=== PATIENT | male | born 1940 | race Caucasian/White ===

== ENCOUNTER → 2018-06-07 | Outpatient (CLI) | payer OTHER | LOC: BMCIMAGING 16:24 | PROVIDERS: ATTEND Internal Medicine | DX: R22.42 Localized swelling, mass and lump, left lower limb (principal); C95.90 Leukemia, unspecified not having achieved remission ==

== ENCOUNTER → 2018-06-22 | Outpatient (CLI) | payer OTHER ==
[~2018-06-22] MED LIST: GADOBUTROL 10 ML VIAL IVP ONE
== END ==
LOC: FIMAGING 09:49
PROVIDERS: ATTEND Internal Medicine
DX: M79.9 Soft tissue disorder, unspecified (principal); Z85.6 Personal history of leukemia
CPT/HCPCS: 73720; A9585

== ENCOUNTER 2018-06-28 14:47 | Day surgery (SDC) | payer OTHER ==
--- NOTE | 2018-06-27 16:14 | GHP ---
DATE OF ADMISSION: 06/28/2018 PREOPERATIVE DIAGNOSIS: Left thigh mass. HISTORY OF PRESENT ILLNESS: The patient is a 77-year-old man with chronic lymphocytic leukemia. He has been followed by his oncologist, Dr. Chin Donovan. He noticed some swelling in the anterior aspect of his left thigh. He denies any pain or redness in the area. He had an ultrasound performed, which showed asymmetry in the rectus femoris muscle. No evidence of hyperemia or discrete mass. He had a followup MRI on 06/23/2018. PAST MEDICAL HISTORY: CLL, hypertension, hyperlipidemia, coronary artery disease. ALLERGIES: No known drug allergies. FAMILY HISTORY: None. SOCIAL HISTORY: He is retired. He is , with 3 children. He denies tobacco, alcohol, or recreational drug use. REVIEW OF SYSTEMS: 10-point review of systems negative aside from HPI. PHYSICAL EXAMINATION: GENERAL: A pleasant, well-developed, well-nourished man in no acute distress. HEENT: Normocephalic, atraumatic. No hearing deficits. Pupils equal and round. No scleral icterus. Mucous membranes moist. NECK: Trachea midline. RESPIRATORY: No increased work of breathing. Clear to auscultation bilaterally. CARDIOVASCULAR: Regular rate and rhythm. No peripheral edema. MUSCULOSKELETAL: Asymmetry of the left thigh with swelling and overlying skin changes. No tenderness to palpation. No swelling of the right lower extremity. PSYCH: Mood and affect normal. NEURO: Grossly intact. IMPRESSION/PLAN: 77-year-old man with chronic lymphocytic leukemia and a new left thigh mass. Recommend excisional biopsy to obtain a definitive diagnosis. Discussed risks of surgery, including, but not limited to heart attack, stroke , blood clots, or . Discussed risk of infection, bleeding, damage to surrounding structures, scarring, need for additional procedures. He understands the risks and would like to proceed. Patient was additionally seen by Dr. Brianna Mason who agrees with the above impression and plan. /[id number]/MODL MTDD
[2018-06-28] MEDS ORDERED: ceFAZolin 2 GM/DEXTROSE 100 ML IV ONE (14:53)
[2018-06-28] MEDS ORDERED: LIDOCAINE 1% 2 ML INJ ID PRN (14:54)
[2018-06-28] MEDS ORDERED: LR 1,000 ML IV ONE (14:54)
--- NOTE | 2018-06-28 14:57 | PDHPUP ---
History & Physical Update H&P update statement: This history and physical update is based on an assessment of the patient which was completed after admission or registration (within 24 hours), but prior to the surgery/procedure. H&P update: H&P reviewed & patient examined, no change in patient's condition since H&P completed
[2018-06-28] MEDS ORDERED: BUPIVACAINE 0.5% 30 ML SDV ONE (15:04)
[2018-06-28] MEDS ORDERED: PROPOFOL/EMULSION 500 MG/50 ML BOTTLE IV ONE (15:36)
[2018-06-28] MEDS ORDERED: fentaNYL 100 MCG/2 ML INJ ONE (15:37)
[2018-06-28] MEDS ORDERED: PROMETHAZINE HCL 25 MG/ML INJ IVP PRN (16:10)
[2018-06-28] MEDS ORDERED: ALBUTEROL 3 ML DEYVIAL IH PRN (16:10)
[2018-06-28] MEDS ORDERED: HYDROCODONE/APAP 5/325 TAB PO PRN (16:10)
[2018-06-28] MEDS ORDERED: fentaNYL 100 MCG/2 ML INJ IVP PRN (16:10)
[2018-06-28] MEDS ORDERED: oxyCODONE IR 5 MG TAB PO PRN (16:10)
[2018-06-28] MEDS ORDERED: NALOXONE HCL 0.4 MG/ML INJ IVP PRN (16:10)
[2018-06-28] MEDS ORDERED: DEXAMETHASONE 4 MG/ML VIAL IVP PRN (16:10)
[2018-06-28] MEDS ORDERED: ACETAMINOPHEN 500 MG TAB PO PRN (16:10)
--- NOTE | 2018-06-28 16:10 | PDANEPAE ---
ANE History of Present Illness here for thigh mass excision ANE Past Medical History - Cardiovascular History Hx Hypertension: Yes Hx Arrhythmias: No Hx Chest Pain: No Hx Coronary Artery / Peripheral Vascular Disease: No Hx CHF / Valvular Disease: No Hx Palpitations: No Cardiovascular History Comment: HYPERLIPIDEMIA. PCP MONITORS BP MEDICATIONS CURRENTLY - Pulmonary History Hx COPD: No Hx Asthma/Reactive Airway Disease: No Hx Recent Upper Respiratory Infection: No Hx Oxygen in Use at Home: No Hx Sleep Apnea: No Sleep Apnea Screening Result - Last Documented: Positive Pulmonary History Comment: LEXIS TRIGGERS - Neurologic History Hx Cerebrovascular Accident: No Hx Seizures: No Hx Dementia: No Neurologic History Comment: HX OF BACK SURGERY. PERIPHERAL NEUROPATHY - Endocrine History Hx Diabetes: No - Renal History Hx Renal Disorders: Yes Renal History Comment: ENLARGED PROSTATE - Liver History Hx Hepatic Disorders: No - Neurological & Psychiatric Hx Hx Neurological and Psychiatric Disorders: No - Cancer History Hx Cancer: Yes Cancer History Comment: LYMPHOCYTIC LEUKEMIA DX'D 03/04/18 - Congenital Disorder History Hx Congenital Disorders: No - GI History Hx Gastrointestinal Disorders: Yes Gastrointestinal History Comment: HX OF COLON RESECTION - Other Health History Other Health History: NONE - Chronic Pain History Chronic Pain: No - Surgical History Prior Surgeries: LAMI AND SPINAL FUSION. COLON RESECTION. RTC REPAIR- RIGHT. HERNIA REPAIR. TONSILLECTOMY ANE Review of Systems Review of systems is: negative Review of Systems: - Exercise capacity Exercise capacity: >=4 METS METS (RN): 4 METS ANE Patient History - Allergies Allergies/Adverse Reactions: No Known Allergies Allergy (Verified 06/27/18 17:36) - Home Medications Home medications: home medication list seen and reviewed Home Medications: Ambien 06/27/18 [Last Taken Unknown] Avodart 0.5 MG (*) 06/27/18 [Last Taken 06/27/18 19:30] Diovan 06/27/18 [Last Taken 06/27/18 19:30] Escitalopram Oxalate 06/27/18 [Last Taken 06/27/18 19:30] Excedrin Tablet (*) 06/27/18 [Last Taken 06/27/18] Flomax 06/27/18 [Last Taken 06/27/18 19:30] Gabapentin 06/27/18 [Last Taken 06/27/18 19:30] Herbals/Supplements -Info Only 06/27/18 [Last Taken 06/27/18] Lipitor 06/27/18 [Last Taken 06/27/18 19:30] Ambien 06/28/18 [Last Taken 06/27/18 19:30] - NPO status NPO Status: no food or drink >8 hours NPO Since - Liquids (Date): 06/28/18 NPO Since - Liquids (Time): 15:00 NPO Since - Solids (Date): 06/28/18 NPO Since - Solids (Time): 07:30 - Smoking Hx Smoking Status: Former smoker - Family Anes Hx Family Hx Anesthesia Complications: NONE ANE Labs/Vital Signs - Vital Signs Vital Signs: reviewed preoperatively; see RN documention for details Blood Pressure: 131/70 Heart Rate: 60 Respiratory Rate: 12 O2 Sat (%): 94 Height: 172.72 cm Weight: 77.111 kg ANE Physical Exam - Airway Neck exam: FROM Mallampati Score: Class 1 - Pulmonary Pulmonary: no respiratory distress - Cardiovascular Cardiovascular: regular rate and rhythym - ASA Status ASA Status: II ANE Anesthesia Plan Anesthesia Plan: GA with mask
--- NOTE | 2018-06-28 16:19 | POSTOPPROG ---
Post Op Note Date of Operation: 06/28/18 Surgeon: Brianna Mason Anesthesiologist: sherrie Anesthesia: IV Sedation Pre-op Diagnosis: L thigh mass Post-op Diagnosis: l thigh mass Indication: 77 yo with CLL and Left thigh mass Procedure: Excisional biopsy deep L thigh mass Findings: fatty tissue Inf/Abcess present in the surg proc area at time of surgery?: No Specimen(s): L thigh mass
[2018-06-28] MEDS ORDERED: ACETAMINOPHEN/ASA/CAFFEINE 1 EACH TAB PO ONE (17:15)
--- NOTE | 2018-06-28 17:20 | POSTANESTH ---
Post Anesthetic Evaluation Cardiovascular Status: Normal, Stable Respiratory Status: Normal, Stable Level of Consciousness/Mental Status: Can Participate in Eval Pain Control: Adequate, Prn Tx Ordered Nausea/Vomiting Control: Adequate, Prn Tx Ordered Complications Possibly Related to Anesthesia: None Noted
[2018-06-28 17:27] VITALS: BP 119/55
--- NOTE | 2018-06-28 22:04 | GOP ---
DATE OF OPERATION: 06/28/2018 SURGEON: Brianna Mason MD ANESTHESIA: Monitored anesthesia care with IV sedation. ANESTHESIOLOGIST: Kp Perry MD. PREOPERATIVE DIAGNOSIS: Left thigh mass. POSTOPERATIVE DIAGNOSIS: Left thigh mass. PROCEDURE PERFORMED: Deep excisional biopsy of left thigh mass, approximately 5 x 3 cm. FINDINGS: fatty tissue SPECIMENS: Left thigh mass. ESTIMATED BLOOD LOSS: 5 cc. INDICATIONS: This is a patient with CLL who had a left thigh mass. 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 DESCRIPTION OF PROCEDURE: Patient was brought into the operating room and placed supine on the table. Monitored anesthesia care with IV sedation was performed. His left thigh was prepped and draped in the usual sterile fashion. I infiltrated the area with 0.5% Marcaine prior to making incisions. I made an incision down through the subcutaneous tissue. I encountered the fascia just medial of the vastus lateralis. I divided this and immediately a large lipomatous structure was in the field. I transected a large piece of this and submitted it to Pathology for permanent. Hemostasis was achieved. I closed the fascia with 3-0 Vicryl. I placed hemoclips to identify the area where I entered the fascia. The skin was closed with 3-0 Vicryl followed by 4-0 Monocryl. Dermabond applied. He was awakened in the operating room and transferred to PACU in stable condition. /[id number]/MODL MTDD
== END 2018-06-28 18:18 | disposition home or self-care (01) ==
LOC: FSGY 14:47
PROVIDERS: ATTEND Surgery
PROC: 0JBM0ZX Excision of Left Upper Leg Subcutaneous Tissue and Fascia, Open Approach, Diagnostic (ICD-10-PCS; principal; 2018-06-28 16:15)
DX: R22.42 Localized swelling, mass and lump, left lower limb (principal); C91.10 Chronic lymphocytic leukemia of B-cell type not having achieved remission; I10 Essential (primary) hypertension; E78.5 Hyperlipidemia, unspecified; I25.10 Atherosclerotic heart disease of native coronary artery without angina pectoris; G62.9 Polyneuropathy, unspecified; Z87.891 Personal history of nicotine dependence
CPT/HCPCS: J0690; J2704; J3010

== ENCOUNTER → 2018-12-13 | Outpatient (CLI) | payer OTHER ==
[~2018-12-13] MED LIST changes: -GADOBUTROL 10 ML VIAL IVP ONE; +IOPAMIDOL (ISOVUE-300) 100 ML BTL ONE
== END ==
LOC: FIMAGING 13:08
PROVIDERS: ATTEND Orthopaedic Surgery
DX: C49.22 Malignant neoplasm of connective and soft tissue of left lower limb, including hip (principal); I77.810 Thoracic aortic ectasia
CPT/HCPCS: 71260; Q9967; 82565-PO

== ENCOUNTER → 2018-12-28 | Outpatient (CLI) | payer OTHER ==
[~2018-12-28] MED LIST changes: +GADOBUTROL 10 ML VIAL IVP ONE; -IOPAMIDOL (ISOVUE-300) 100 ML BTL ONE
== END ==
LOC: FIMAGING 13:59
PROVIDERS: ATTEND Orthopaedic Surgery
DX: M62.9 Disorder of muscle, unspecified (principal); Z98.890 Other specified postprocedural states
CPT/HCPCS: 73720; A9585; 82565-PO